=== PATIENT | male | born 2000 | race African-American/Black ===

== ENCOUNTER 2021-12-16 16:35 | Emergency (ER) | payer OTHER ==
[~2021-12-16] VITALS: Ht 182.9 cm; Wt 100.1 kg
[2021-12-16 16:36] VITALS: BP 137/88
[2021-12-16] MEDS ORDERED: LIDO2SOL17 PO (20:09)
[2021-12-16] MEDS ORDERED: AMOX875T2 PO (20:09)
[2021-12-16] MEDS ORDERED: KETO10TAB PO (20:09)
== END 2021-12-16 20:19 | disposition home or self-care (01) ==
LOC: M ED 16:35
DX: K03.81 Cracked tooth (principal); K08.89 Other specified disorders of teeth and supporting structures